=== PATIENT | female | born 1945 | race Caucasian/White ===

== ENCOUNTER 2022-05-09 10:04 | Outpatient (CLI) | payer MEDICARE, SELFPAY ==
[2022-05-09 13:11] LABS: Free T4 Free Thyroxine 0.67 ng/mL (0.78-2.19)
[2022-05-09 13:19] LABS: Thyroid Stimulating Hormone 0.266 uIU/mL (0.465-4.680)
== END 2022-05-09 10:05 | disposition home or self-care (01) ==
LOC: ANHWCLAB 10:08
PROVIDERS: PCP Family Medicine; Visit Provider Internal Medicine Endocrinology, Diabetes & Metabolism
DX: E05.90 Thyrotoxicosis, unspecified without thyrotoxic crisis or storm (principal)
CPT/HCPCS: 36415; 84439; 84443

== ENCOUNTER 2024-10-29 01:01 | Day surgery (SDC) | payer MEDICARE, SELFPAY ==
[2024-08-14 14:39] VITALS: BMI 42.1
--- NOTE | 2024-08-14 15:07 | PC.NURSE ---
Spoke with CARRINGTON regarding medication ELIQUIS. PATIENT verbalizes understanding that the last dose is to be taken on 08/18/2024 and the Endoscopist will instruct them when to restart after the procedure.
[2024-10-21 10:50] VITALS: BMI 42.1
--- NOTE | 2024-10-21 14:23 | SUR.PREOP ---
Spoke with patient in regards to Eliquis. Patient verbalized understanding that her last dose will be 10/26/[address] Katz will let her know when to resume after her procedure is done.
--- OUTSIDE RECORDS SUMMARY | 2024-10-29 01:04 | XMS_ITS | Encounter Summary ---
Author Organization [facility] Address [address] [place] [address] Care Team Providers Care Acute Care Registered Nurse Name Role Phone García Flores MD Primary Care Provider [phone] Barrett High MD Unavailable [phone] Octavia Lau MD Unavailable Pauly Cormier Primary Care Provider [phone] Encounter Details Date Type Department Care Team (Late st Contact Info) Description 12/25/2020 Abstract [facility] [id number] Arin Barajas MA Social History Tobacco Use Types Packs/Day Years Used Date Smoking Tobacco: Never Smokeless Tobacco: Never Alcohol Use Standard Drinks/Week Comments No 0 (1 standard drink = 0.6 oz pur e alcohol) Social Connection and Isolation Panel [NHANES] A nswer Date Recorded Frequency of Communication with Friends and Fami ly Not on file 01/16/2019 Frequency of Social Gatherings with Friends and Family Not on file 01/16/2019 Attends Gnosticist Services Not on file 01/16 Active Member of Clubs or Organizations Not on f ile 01/16/2019 Attends Club or Organization Meetings Not on keke e 01/16/2019 Marital Status 01/16/2019 AUDIT-C Answer Date Recorded Frequency of Alcohol Consumption Never 01/16/2019 Average Number of Drinks Not on file 019 Frequency of Binge Drinking Not on file 12/31 PHQ-2 Answer Date Recorded PHQ-2 Score - If the patient scores above 3, please move on to questions 3-9 0 12/21/2020 [facility] Occupat ional [facility] - Occupational Stress Questionnaire Answer Date Recorded Feeling of Stress Only a little 01/16/2019 Exercise Vital Sign Answer Date Recorde d Days of Exercise per Week 0 days 2018 Minutes of Exercise per Session Not on file 01/16/2019 Comments No Sex and Gender Information Value Date Recorded Sex Assigned at Female 07/16/2024 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 No / Unsure 12/21/2020 1:18 PM CDT documented as of this encounter Functional Status * RETIRED Are you deaf or do you have serious difficulty hearing Answer Date of Assessment Author Status No 03/20/2019 4:17 PM CDT Acti ve * RETIRED Are you blind or do you have serious difficulty seeing, even when wearing glasses? Answer Date of Assessment Author Status No 03/20/2019 4:17 PM CDT Activ e * Do you have serious difficulty walking or climbing stairs? Answer Date of Assessment Author Status No 03/20/2019 4:17 PM CDT Mildred Cespedes RN Active * Do you have difficulty dressing or bathing? Answer Date of Assessment Author Status No 03/20/2019 4:17 PM CDT iMldred Cespedes RN Active * Because of a physical, mental, or emotional condition, do you have difficulty doing errands alone such as visiting a doctor's office or shopping? Answer Date of Assessment Author Status No 03/20/2019 4:17 PM CDT Mildred Cespedes RN Active documented as of this encounter Mental Status * Because of a physical, mental, or emotional condition, do you have serious difficulty concentrating, remembering, or making decisions? Answer Entry Date Author Status No 03/20/2019 4:17 PM CDT Mildred Cespedes RN Active documented in this encounter Plan of Treatment Upcoming Encounters Date Type Department Care Team (Late st Contact Info) Description 11/07/2024 9:30 AM CDT Appointment [facility] [id number] [place], [place] [id number] Pauly Cormier PA [address] [place], [place] [id number] 11/20/2024 10:00 AM CDT Office Visit [facility] [address] [address] Tammie De Guzman, CHRISTINEC Octavia Lau MD [facility] [address] [place] [address] 12/02/2024 7:25 AM CDT Allied Health/[facility] [address] [place] [address] Octavia Lau MD [facility] [address] [place], [place] [id number] 02/05/2025 11:15 AM CDT Office Visit [facility] [address] [place] [phone] Dee Gibson, IS TECHNICIAN-C [facility]. [facility] [address] [place] [address] 07/22/2025 9:20 AM PROJECT [employer] SPECIALIST Office Visit [facility] - [address] [address] Rajesh Izquierdo MD [address] [place] [address] [address] [place], [place] [phone] documented as of this encounter Procedures Procedure Name Priority Date/Time Associated Diagnosis Comments FREE T3 Routine 01/15/2024 THYROXINE, FREE (FT4) Routine 01/15/2024 THYROID STIM HORMONE TSH Routine 01/15/2024 CBC (OUTSIDE LAB) Routine 12/24/2020 COMPREHENSIVE METABOLIC PANEL Routine 12/24/2020 LIPID PANEL Routine 12/24/2020 THYROID STIM HORMONE TSH Routine 12/24/2020 documented in this encounter Results * THYROXINE, FREE (FT4) (01/15/2024) FREE T4 0.8 us Default History Genericprovider LABORATORY Edited Result - Final * THYROID STIM HORMONE TSH (01/15/2024) TSH 1.75 us Default History Genericprovider LABORATORY Edited Result - Final * FREE T3 (01/15/2024) FREE T3 3.5 us Default History Genericprovider LABORATORY Edited Result - Final * CBC (OUTSIDE LAB) (12/24/2020) WBC 5.1 HGB 11.3 HCT 34.7 PLT 160 12/24/2020 us Doc [facility] Abstract LAB-OUTSIDE/ABSTRACTED Final Result * THYROID STIM HORMONE, TSH (12/24/2020) TSH 0.72 12/24/2020 us Doc [facility] Abstract LABORATORY Final Result * COMPREHENSIVE METABOLIC PANEL (12/24/2020) SODIUM S/P/B 142 POTASSIUM S/P/B 4.0 CO2 30 CHLORIDE S/P/B 103 GLUCOSE 95 mg/dL CALCIUM S/P/B 9.9 BUN 22 CREATININE S/P/B 0.78 0.5 - 1.0 EGFR AFR. AMER. 87 <=90 EGFR NON-AFR. AMER. 75 <=90 ALKALINE PHOSPHATASE S/P/B 60 ALT 17 AST 16 BILIRUBIN TOTAL S/P/B 0.4 ALBUMIN S/P/B 4.3 3.5 - 5.0 TOTAL PROTEIN S/P/B 6.5 GLOBULIN 2.2 12/24/2020 us Doc [facility] Abstract LABORATORY Final Result * LIPID PANEL (12/24/2020) CHOLESTEROL 186 HDL 58 TRIGLYCERIDES 136 LDL (CALCULATED) 105 12/24/2020 us Doc [facility] Abstract LABORATORY Final Result documented in this encounter Visit Diagnoses Not on filedocumented in this encounter Additional Health Concerns Assessment Noted Time PHQ-9 Depression Total Score: 0 12/22/19 21 1:34 PM CDT documented as of this encounter Care Teams Acute Care Registered Nurse Relationship Specialty Start Date End Date García Flores MD [address] [place] [id number] PCP - General INTERNAL MEDICINE 01/09/19 02/07/22 Pauly Cormier PA [address] [place] [id number] PCP - General 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 [address] [address] [place] [facility] Clerk CARDIOVASCULAR DISEASE 01/14/19 Octavia Lau MD [facility]. [place] [address] [place] [address] EP Medical Office Clerk CLINICAL CARDIAC ELECTROPHYSIOLOGY 04/03/19 documented as of this encounter
--- OUTSIDE RECORDS SUMMARY | 2024-10-29 01:04 | XMS_ITS | Clinical Summary ---
Author Organization [facility] Address [address] [place] [address] Care Team Providers Care Release Manager Name Role Phone Barrett High MD Unavailable [phone] Octavia Lau MD Unavailable Jania Cormier Primary Care Provider [phone] Allergies No known active allergies Medications omeprazole 20 MG capsule Take 1 capsule (20 mg total) by mouth daily. 0 9 Active sertraline 50 MG tablet Take 1 tablet (50 mg total) by mouth daily. 0 9 Active Cholecalciferol (VITAMIN D3) 2000 units Tab Take 1 tablet (50 mcg total) by mouth daily. 9 Active methIMAzole (TAPAZOLE) 5 MG tablet Take 1 tablet (5 mg total) by mouth daily. 9 Active Multiple Vitamins-Minera ls (LUTEIN-ZEAXANT HIN OR) Active vitamin C 1000 MG tablet daily. 1 Active furosemide (LASIX) 20 MG tablet TAKE 1-2 TABLETS (20-40 MG TOTAL) BY MOUTH DAILY. 180 tablet 3 Active magnesium oxide (MAG-OX) 400 MG tablet Take 1 tablet (400 mg total) by mouth 2 (two) times daily. 60 tablet 3 3 Active spironolactone (ALDACTONE) 25 MG tablet TAKE 1/2 TABLET BY MOUTH EVERY DAY 45 tablet 3 3 Active Zinc 50 MG Tab Take by mouth daily. Active multivitamin with minerals liquid Take 15 mLs by mouth daily. Active vitamin B-12 (CYANOCOBALAMIN ) (CYANOCOBALAMIN ) 1000 mcg tablet Take 1 tablet (1,000 mcg total) by mouth daily. Active simvastatin (ZOCOR) 40 MG tablet take 1 tablet by mouth at bedtime 90 tablet 4 Active sacubitril-vals crystal (ENTRESTO) 24-26 MG tablet Take 1 tablet by mouth daily. 90 tablet 4 4 Active apixaban (ELIQUIS) 5 MG tablet Take 1 tablet (5 mg total) by mouth 2 (two) times daily. 180 tablet 1 5 Active metoprolol succinate ER (TOPROL-XL) 100 MG 24 hr tablet Take 1 tablet (100 mg total) by mouth 2 (two) times daily. 180 tablet 5 Active metoprolol succinate ER (TOPROL-XL) 25 MG 24 hr tablet TAKE 1 TABLET BY MOUTH 2 TIMES DAILY. TAKE WITH THE 100 MG TO EQUAL 125 MG TWICE A DAY. 180 tablet 5 Active metoprolol succinate ER (TOPROL-XL) 100 MG 24 hr tablet TAKE 1 TABLET BY MOUTH TWICE A DAY 180 tablet 5 10/29/19 25 Discontinu ed(Reorder ) metoprolol succinate ER (TOPROL-XL) 25 MG 24 hr tablet TAKE 1 TABLET BY MOUTH 2 TIMES DAILY. TAKE WITH THE 100 MG TO EQUAL 125 MG TWICE A DAY. 180 tablet 5 10/29/19 25 Discontinu ed(Reorder ) apixaban (ELIQUIS) 5 MG tablet Take 1 tablet (5 mg total) by mouth 2 (two) times daily. 180 tablet 4 5 10/16/19 25 Discontinu ed(Reorder ) Active Problems Problem Noted Date Diagnosed Date Left leg pain 03/25/2024 Unsteadiness on feet 03/25/2024 Class 3 severe obesity with body mass index (BMI) of 40.0 to 44.9 in adult, unspecified obesity type, unspecified whether serious comorbidity present 01/17/2023 Closed fracture of distal en d of right ulna with routine healing, unspecified fracture morphology, subsequent encounter 01/02/2023 Assessment & Plan (02/14/2023 1:07 PM CDT): Healing right distal ulnar fracture Recommendation at this time, continue with progressive range of motion strengthening. We will see her back as needed. Assessment & Plan (01/16/2023 9:06 PM CDT): Recommendation at this time, two more weeks in the brace then two weeks out of the brace. We'll see her in four weeks for repeat evaluation and x-ray. Assessment & Plan (01/02/2023 8:09 PM CDT): Recommendation at this time, we went over the risks and benefits, as well as alternatives. We'll get her into a cock-up wrist splint. We'll have her follow- up in a couple weeks for repeat evaluation and x-ray. As long as it doesn't shift, we should not need to proceed with any type of surgical intervention. 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 Overview (03/20/2019): Overview: THYROTOX NOS NO CRISIS Toxic diffuse goiter 01/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 Overview (03/20/2019): Overview: TOX DIF GOITER NO CRISIS Hyperlipidemia Encounters Date Type Department Care Team Description 10/28/2024 Telephone [facility] [place] [address] [place] [address] Octavia Lau MD Refill Request (METOPROLOL) 10/20/2024 Results Follow-Up [facility] [address] [place] [phone] Barrett High MD USE ECHOCARDIOGRAM W CON 10/16/2024 9:56 AM CDT - 10/16/2024 11:59 PM CDT Hospital Encounter [facility] [id number] [place] [id number] Barrett High MD Discharge Disposition: Home or Self Care (Routine Discharge) 10/16/2024 Travel 10/15/2024 Telephone [facility] [address] [address] Marisela Bradshaw MOSAIC WORKER Refill Request (Eliquis/) 08/15/2024 Scan [facility] [address] [address] Angela Swenson, RN Information (CRMD form for [employer]urant) 08/14/2024 9:00 AM GARAGE CONSTRUCTION EQUIPMENT MECHANIC Allied Health/Nurse Visit [facility] [address] [address] Octavia Lau MD Remote Device Check 08/14/2024 Telephone [facility] [address] [address] Angela Swenson RN Remote Device Check 08/09/2024 Telephone [facility] [address] [address] Barrett High MD Surgical Clearance from Last 3 Months Immunizations Immunization Administration Dates Next Due Afluria 36 MONTHS+ (Prefille d Syringe IIV4) 03/20/2019(Deferred: Patient/family declined) Fluzone High Dose - >Age 65 (Prefilled Syringe) 04/22/2019,04/11/2018 Influenza Adult (Generic) 04/10/2019,06/21/2012 MODERNA COVID-19 (12+) MRNA, LNP-S, PF, 100 MCG/ 0.5 ML DOSE 08/27/2020,07/30/2020 Shingrix 06/24/2020,04/23/2020 Tdap (Boostrix) 12/16/2022 Family History Medical History Relation Comments CHF Mother Breast Cancer Neg Hx Relation Status Comments Father (Age 89) Maternal Grandfather Maternal Grandmother Mother (Age 100) Paternal Grandfather Paternal Grandmother Sister (Age 79) Social History Tobacco Use Types Packs/Day Years Used Date Smoking Tobacco: Never Smokeless Tobacco: Never Tobacco Cessation:Counseling Given: Yes Comments:na Alcohol Use Standard Drinks/Week Comments No 0 (1 standard drink = 0.6 oz pur e alcohol) Social Connection and Isolation Panel [NHANES] A nswer Date Recorded Frequency of Communication with Friends and Fami ly Not on file 01/16/2019 Frequency of Social Gatherings with Friends and Family Not on file 01/16/2019 Attends Scientologist Services Not on file 01/16 Active Member of Clubs or Organizations Not on f ile 01/16/2019 Attends Club or Organization Meetings Not on keke e 01/16/2019 Marital Status 01/16/2019 AUDIT-C Answer Date Recorded Frequency of Alcohol Consumption Never 01/16/2019 Average Number of Drinks Not on file 019 Frequency of Binge Drinking Not on file 12/31 PHQ-2 Answer Date Recorded Patient Health Questionnaire-2 Score 0 07/16/2024 [facility] - Occupational Stress Questionnaire Answer Date Recorded Feeling of Stress Only a little 01/16/2019 Exercise Vital Sign Answer Date Recorde d Days of Exercise per Week 0 days 2018 Minutes of Exercise per Session Not on file 01/16/2019 Comments No Sex and Gender Information Value Date Recorded Sex Assigned at Female 07/16/2024 3:31 PM GARAGE CONSTRUCTION EQUIPMENT MECHANIC Legal Sex Female 8:35 PM CDT Gender Identity Not on file Sexual Orientation Not on file Occupation Industry Job Start Date Job End Date Not on file Not on file Not on file Not on file Last Filed Vital Signs Vital Sign Reading Time Taken Comments Blood Pressure 134/80 07/17/2024 10:17 AM GARAGE CONSTRUCTION EQUIPMENT MECHANIC Pulse 73 07/17/2024 10:17 AM GARAGE CONSTRUCTION EQUIPMENT MECHANIC Temperature 36.2 C (97.1 F) 07/16/2024 3:37 PM GARAGE CONSTRUCTION EQUIPMENT MECHANIC Respiratory Rate 14 07/16/2024 3:37 PM GARAGE CONSTRUCTION EQUIPMENT MECHANIC Oxygen Saturation 97% 07/16/2024 3:37 PM GARAGE CONSTRUCTION EQUIPMENT MECHANIC ra Inhaled Oxygen Concentration - - Weight 106.1 kg (234 lb) 07/17/2024 10:17 AM GARAGE CONSTRUCTION EQUIPMENT MECHANIC Height 157.5 cm (5' 2 ) 07/17/2024 10:17 AM GARAGE CONSTRUCTION EQUIPMENT MECHANIC Body Mass Index 42.8 07/17/2024 10:17 AM GARAGE CONSTRUCTION EQUIPMENT MECHANIC Plan of Treatment Upcoming Encounters Date Type Department Care Team (Late st Contact Info) Description 11/07/2024 9:30 AM CDT Appointment [facility] [address] [place], [place] [phone] Jania Cormier PA [address] [place], [place] [phone] 11/20/2024 10:00 AM CDT Office Visit [facility] [address] [phone] Tammie De Guzman PA-C Octavia Lau MD [facility] [address] [place] [address] 12/02/2024 7:25 AM CDT [facility] [address] [place] [address] Octavia Lau MD [facility]. [facility] [address] [place] [address] 02/05/2025 11:15 AM CDT Office Visit [facility] [address] [place] [phone] Dee Gibson, KNOWLEDGE ARCHITECT-C [facility] [address] [place] [address] 07/22/2025 9:20 AM GARAGE CONSTRUCTION EQUIPMENT MECHANIC Office Visit [facility] [address] [phone] Rajesh Izquierdo MD [address] [facility] [address] [place] [address] Health Maintenance Due Date Last Done Comments Hepatitis C 1965 Pneumococcal Vaccine: 50+ Years (1 of 1 - PCV) 1997 Annual Medicare Wellness Visit 2012 RSV Immunization or 60+ Years (1 - 1-dose 75+ series) 2022 COVID-19 Vaccine (3 - 2023-2 5 season) 2024 08/27/2020, 07/30/2020 DTaP, Tdap and Td Vaccines ( 2 - Td or Tdap) 12/16/2032 12/16/2022 Zoster Vaccines Completed 06/24/2020, 04/23/2020 Dexa Scan (General) Completed 05/14/2024, 05/19/2020 PHQ-2 (Physician [place]) Completed 07/16/2024 Meningococcal B Vaccine Aged Out No l onger eligible based on patient's age to complete this topic Meningococcal Vaccine Aged Out No twin camille eligible based on patient's age to complete this topic RSV Immunizations Under 20 Months Aged Out No longer eligible b ased on patient's age to complete this topic Medical Devices Implanted Type Area Oil Burner Servicer And Installer Device Identifier Shelf Expiration Date Model / Serial / Lot Sj Biv Icd-03/21/2019 Implanted:Qty : 1 on 03/21/2019 by Octavia Lau MD ICD [facility] 03/02/2021 [id number] / [id number] / Rv Lead- 9 Implanted:Qty : 1 on 03/21/2019 by Octavia Lau MD Lead Implant Left: Chest Wall [facility] [id number] / [id number] / Ra Lead- 9 Implanted:Qty : 1 on 03/21/2019 by Octavia Lau MD Lead Implant Left: Chest Wall [facility] [id number] / [id number] / Lv Lead- 9 Implanted:Qty : 1 on 03/21/2019 by Octavia Lau MD Lead Implant [facility] 01/30/2022 [id number] / [id number] / Procedures Procedure Name Priority Date/Time Associated Diagnosis Comments USE ECHOCARDIOGRAM W CON Routine 10/16/2024 10:54 AM CDT Nonischemic cardiomyopathy (CMS/HCC HHS/HCC) BONE DENSITY/DEXA Routine 05/14/2024 11: 31 AM GARAGE CONSTRUCTION EQUIPMENT MECHANIC Other primary ovarian failure from Last 3 Months or Most Recently Relevant to Health Maintenance Results * USE ECHOCARDIOGRAM W CON (10/16/2024 10:54 AM CDT) Anatomical Region Laterality Modality NA Ultrasound 10/16/2024 10:0 4 AM CDT Narrative 10/19/2024 10:57 AM CDT CARROLL MARIE Pat.Name: Jimena Barron ward Pat.ID: [id number] .Date: 10/16/2024 Refer.MD: Cynthia, [facility] Radiology Exam Time: 10:04:00 AM Study Type:CYNTHIA Height: 62 in Weight: 230 lb BSA: 2.03 m2 Age: 12 1945,79Y Sex: F Sonogrphr: David Pat. Stat.:Outpatient Reason for Study:H/O Cardiomyopathy Procedures: Study performed at [place], [place] and interpreted by [facility]. 2D, M-mode, Doppler, Color Flow, Myocardial contrast was used to enhance endocardial definition. ++++++++++++++++++++++++++++++++++++ SUMMARY: ++++++++++++++++++++++++++++++++++++ . The left ventricular size is normal. The left ventricular systolic function is normal. Estimated left ventricular ejection fraction is 60-65%. Left ventricular diastolic function is abnormal (grade 1 - impaired relaxation). Wall motion appears normal in all segments. The right ventricular size is mildly enlarged. Right ventricular systolic function is normal. Right ventricular systolic pressure is 30 mmHg. The right ventricle not adequately visualized in all views. A pacemaker wire is visualized in the right atrium. No evidence of pericardial effusion. Inferior vena cava shows >50% collapse with respiration consistent with normal right atrial pressure. There is no evidence of aortic regurgitation. There is trace mitral regurgitation. Mild tricuspid regurgitation. Right ventricular systolic pressure is 30 mmHg. ++++++++++++++++++++++++++++++++++++ FINDINGS: ++++++++++++++++++++++++++++++++++++ LV: The left ventricular size is normal. The left ventricular systolic function is normal. Estimated left ventricular ejection fraction is 60-65%. Left ventricular diastolic function is abnormal (grade 1 - impaired relaxation). WM: Wall motion appears normal in all segments. RV: The right ventricular size is mildly enlarged. Right ventricular systolic function is normal. Right ventricular systolic pressure is 30 mmHg. The right ventricle not adequately visualized in all views. LA: Left atrial size is normal. RA: Right atrial size is normal. A pacemaker wire is visualized in the right atrium. MARK: No evidence of pericardial effusion. AO: Aorta is normal. SVn: Inferior vena cava is normal. Inferior vena cava shows >50% collapse with respiration consistent with normal right atrial pressure. AV: The aortic valve is trileaflet. There is no aortic stenosis. There is no evidence of aortic regurgitation. MV: The mitral valve is structurally normal. There is trace mitral regurgitation. PV: Trace pulmonic regurgitation. TV: Structurally normal tricuspid valve. Mild tricuspid regurgitation. <Electronic Signature> 10/19/2024 10:57 AM Barrett High M.D. Procedure Note Barrett High MD - 10/19/2024 CARROLL Patel.Name: Jimena Barron.ID: [id number] .Date: 10/16/2024 Refer.MD: Cynthia, [facility] Radiology Exam Time: 10:04:00 AM Study Type:CYNTHIA Height: 62 in Weight: 230 lb BSA: 2.03 m2 Age: 12 1945,79Y Sex: F Sonogrphr: Ls Pat. Stat.:Outpatient Reason for Study:H/O Cardiomyopathy Procedures: Study performed at [place], [place] and interpreted by [facility]. 2D, M-mode, Doppler, Color Flow, Myocardial contrast was used to enhance endocardial definition. ++++++++++++++++++++++++++++++++++++ SUMMARY: ++++++++++++++++++++++++++++++++++++ . The left ventricular size is normal. The left ventricular systolic function is normal. Estimated left ventricular ejection fraction is 60-65%. Left ventricular diastolic function is abnormal (grade 1 - impaired relaxation). Wall motion appears normal in all segments. The right ventricular size is mildly enlarged. Right ventricular systolic function is normal. Right ventricular systolic pressure is 30 mmHg. The right ventricle not adequately visualized in all views. A pacemaker wire is visualized in the right atrium. No evidence of pericardial effusion. Inferior vena cava shows >50% collapse with respiration consistent with normal right atrial pressure. There is no evidence of aortic regurgitation. There is trace mitral regurgitation. Mild tricuspid regurgitation. Right ventricular systolic pressure is 30 mmHg. ++++++++++++++++++++++++++++++++++++ FINDINGS: ++++++++++++++++++++++++++++++++++++ LV: The left ventricular size is normal. The left ventricular systolic function is normal. Estimated left ventricular ejection fraction is 60-65%. Left ventricular diastolic function is abnormal (grade 1 - impaired relaxation). WM: Wall motion appears normal in all segments. RV: The right ventricular size is mildly enlarged. Right ventricular systolic function is normal. Right ventricular systolic pressure is 30 mmHg. The right ventricle not adequately visualized in all views. LA: Left atrial size is normal. RA: Right atrial size is normal. A pacemaker wire is visualized in the right atrium. MARK: No evidence of pericardial effusion. AO: Aorta is normal. SVn: Inferior vena cava is normal. Inferior vena cava shows >50% collapse with respiration consistent with normal right atrial pressure. AV: The aortic valve is trileaflet. There is no aortic stenosis. There is no evidence of aortic regurgitation. MV: The mitral valve is structurally normal. There is trace mitral regurgitation. PV: Trace pulmonic regurgitation. TV: Structurally normal tricuspid valve. Mild tricuspid regurgitation. <Electronic Signature> 10/19/2024 10:57 AM Barrett High M.D. Barrett High MD ECHO Final Result * BONE DENSITY/DEXA (05/14/2024 11:31 AM GARAGE CONSTRUCTION EQUIPMENT MECHANIC) Anatomical Region Laterality Modality Bone Bone Density 05/14/2024 1:09 PM GARAGE CONSTRUCTION EQUIPMENT MECHANIC Impressions 05/14/2024 1:10 PM GARAGE CONSTRUCTION EQUIPMENT MECHANIC IMPRESSION: WHO Classification: normal RECOMMENDATIONS: All patients should ensure an adequate intake of dietary calcium and vitamin D. The NOF recommend adults under the age of 50 need 1000 mg of calcium and 400-800 IU of vitamin D daily. Effective therapy for the prevention and treatment of osteoporosis include bisphosphonates. FOLLOW-UP: People with diagnosed cases of osteoporosis or at high risk for fracture should have regular bone mineral density test. For patients eligible for Medicare, routine testing is allowed once every 2 years. Testing frequency can be increased to one year for patients who have rapidly progressing disease, those who are receiving or discontinuing medical therapy to restore bone mass, or have additional risk factors. Ordered By: JANIA CORMIER Interpreted By: Carlos Youngblood MD, 05/14/2024 1:09 PM Narrative 05/14/2024 1:10 PM GARAGE CONSTRUCTION EQUIPMENT MECHANIC [facility] [address] [place] [address] EXAMINATION: BONE DENSITY/DEXA INDICATIONS: Other primary ovarian failure COMPARISON: None TECHNIQUE: DEXA bone mineral density evaluation was performed in the AP projection over the lumbar spine and both hips utilizing standard imaging techniques. FINDINGS: The BMD measured at the AP spine L1-L4 is 1.119 g/cm? with a T-score of 0.7. The BMD measured at the left femoral neck is 0.802 g/cm? with a T-score of -0.4. The BMD measured at the left hip is 0.877 g/cm? with a T-score of -0.5. The BMD measured at the right femoral neck is 0.786 g/cm? with a T-score of - 0.6. The BMD measured at the right hip is 0.950 g/cm? with a T-score of 0.1. FRAX 10-year fracture risk: Not reported because all T-scores are at or above -1.0 Procedure Note Carlos Youngblood MD - 05/14/2024 [facility] [address] [address] [place] [id number] EXAMINATION: BONE DENSITY/DEXA INDICATIONS: Other primary ovarian failure COMPARISON: None TECHNIQUE: DEXA bone mineral density evaluation was performed in the APprojection over the lumbar spine and both hips utilizing standard imagingtechniques. FINDINGS: The BMD measured at the AP spine L1-L4 is 1.119 g/cm? with a T-score of0.7. The BMD measured at the left femoral neck is 0.802 g/cm? with a T-score of-0.4. The BMD measured at the left hip is 0.877 g/cm? with a T-score of -0.5. The BMD measured at the right femoral neck is 0.786 g/cm? with a T-scoreof -0.6. The BMD measured at the right hip is 0.950 g/cm? with a T-score of 0.1. FRAX 10-year fracture risk: Not reported because all T-scores are at or above -1.0 IMPRESSION: WHO Classification: normal RECOMMENDATIONS: All patients should ensure an adequate intake of dietary calcium andvitamin D. The NOF recommend adults under the age of 50 need 1000 mg ofcalcium and 400-800 IU of vitamin D daily. Effective therapy for theprevention and treatment of osteoporosis include bisphosphonates. FOLLOW-UP: People with diagnosed cases of osteoporosis or at high risk for fractureshould have regular bone mineral density test. For patients eligible forMedicare, routine testing is allowed once every 2 years. Testing frequencycan be increased to one year for patients who have rapidly progressingdisease, those who are receiving or discontinuing medical therapy torestore bone mass, or have additional risk factors. Ordered By: JANIA CORMIER Interpreted By: Carlos Youngblood MD, 05/14/2024 1:09 PM Jania HALL DEXA Final Result from Last 3 Months or Most Recently Relevant to Health Maintenance Insurance Advance Directives Documents on File Type Date Recorded Patient Duct Layer Supervisor Expl anation Advance Directives and Living Will 03/22/2019 7:21 AM 04/02/2007 SHORT FORM POA FOR HEALTH CARE Advance Directives and Living Will 03/22/2019 7:21 AM 07/11/18 NOTICE OF INDIVIDUAL SIGNING POA FOR HEALTHCARE Advance Directives and Living Will 10/17/2018 12:00 AM POWER OF BALANCE ASSEMBLER FO R HEALTH CARE Advance Directives and Living Will 05/31/2018 12:00 AM POWER OF BALANCE ASSEMBLER FO R HEALTH CARE Advance Directives and Living Will 05/31/2018 12:00 AM POWER OF BALANCE ASSEMBLER FO R HEALTH CARE Advance Directives and Living Will 04/24/2018 12:00 AM POWER OF BALANCE ASSEMBLER FO R HEALTH CARE Advance Directives and Living Will 04/24/2018 12:00 AM POWER OF BALANCE ASSEMBLER FO R HEALTH CARE Advance Directives and Living Will 03/27/2018 12:00 AM POWER OF BALANCE ASSEMBLER FO R HEALTH CARE Advance Directives and Living Will 03/27/2018 12:00 AM POWER OF BALANCE ASSEMBLER FO R HEALTH CARE Advance Directives and Living Will 02/13/2018 12:00 AM POWER OF BALANCE ASSEMBLER FO R HEALTH CARE Advance Directives and Living Will 02/13/2018 12:00 AM POWER OF BALANCE ASSEMBLER FO R HEALTH CARE Advance Directives and Living Will 01/22/2018 12:00 AM POWER OF BALANCE ASSEMBLER FO R HEALTH CARE Advance Directives and Living Will 01/22/2018 12:00 AM POWER OF BALANCE ASSEMBLER FO R HEALTH CARE Advance Directives and Living Will 08/30/2017 12:00 AM POWER OF BALANCE ASSEMBLER FO R HEALTH CARE Advance Directives and Living Will 08/30/2017 12:00 AM POWER OF BALANCE ASSEMBLER FO R HEALTH CARE Advance Directives and Living Will 04/26/2017 12:00 AM POWER OF BALANCE ASSEMBLER FO R HEALTH CARE Advance Directives and Living Will 04/26/2017 12:00 AM POWER OF BALANCE ASSEMBLER FO R HEALTH CARE Advance Directives and Living Will 12/27/2016 12:00 AM POWER OF BALANCE ASSEMBLER FO R HEALTH CARE Advance Directives and Living Will 12/27/2016 12:00 AM POWER OF BALANCE ASSEMBLER FO R HEALTH CARE Advance Directives and Living Will 10/12/2016 12:00 AM POWER OF BALANCE ASSEMBLER FO R HEALTH CARE Advance Directives and Living Will 10/12/2016 12:00 AM POWER OF BALANCE ASSEMBLER FO R HEALTH CARE Advance Directives and Living Will 08/25/2016 12:00 AM POWER OF BALANCE ASSEMBLER FO R HEALTH CARE Advance Directives and Living Will 08/25/2016 12:00 AM POWER OF BALANCE ASSEMBLER FO R HEALTH CARE Advance Directives and Living Will 05/17/2016 12:00 AM POWER OF BALANCE ASSEMBLER FO R HEALTH CARE Advance Directives and Living Will 05/17/2016 12:00 AM POWER OF BALANCE ASSEMBLER FO R HEALTH CARE Advance Directives and Living Will 03/18/2016 12:00 AM POWER OF BALANCE ASSEMBLER FO R HEALTH CARE Advance Directives and Living Will 03/18/2016 12:00 AM POWER OF BALANCE ASSEMBLER FO R HEALTH CARE Advance Directives and Living Will 12/30/2015 12:00 AM POWER OF BALANCE ASSEMBLER FO R HEALTH CARE Advance Directives and Living Will 12/30/2015 12:00 AM POWER OF BALANCE ASSEMBLER FO R HEALTH CARE Advance Directives and Living Will 09/09/2015 12:00 AM POWER OF BALANCE ASSEMBLER FO R HEALTH CARE Advance Directives and Living Will 09/09/2015 12:00 AM POWER OF BALANCE ASSEMBLER FO R HEALTH CARE * Full Code (Latest Code Status on File) Date Activated Date Inactivated Comments 03/21/2019 5:42 PM 03/22/2019 8:56 PM * Full Code Date Activated Date Inactivated Comments 03/20/2019 4:15 PM 03/21/2019 5:42 PM * Full Code Date Activated Date Inactivated Comments 01/21/2019 2:00 PM 01/21/2019 6:53 PM Care Teams Release Manager Relationship Specialty Start Date End Date Jania Cormier PA [address] [place] [address] PCP - General PHYSICIAN SENIOR INVESTMENT ANALYST 02/08/22 Barrett High MD [facility] [address] [place] [address] [place] [facility] Laboratory Scientist CARDIOVASCULAR DISEASE 01/14/19 Octavia Lau MD [facility] [address] [place] [address] EP Chemical Laboratory Scientist CLINICAL CARDIAC ELECTROPHYSIOLOGY 04/03/19
--- OUTSIDE RECORDS SUMMARY | 2024-10-29 01:04 | XMS_ITS | Encounter Summary ---
Author Organization [facility] Address [address] [place] [address] Care Team Providers Care Want Ad Clerk Name Role Phone García Flores MD Primary Care Provider [phone] Barrett High MD Unavailable [phone] Octavia Lau MD Unavailable Pauly Cormier Primary Care Provider [phone] Encounter Details Date Type Department Care Team (Late st Contact Info) Description 03/25/2019 Hospital Follow-up Call [facility] Telemetry Unit [address] [place], [place] [id number] Thu Flores, Numerologist Social History Tobacco Use Types Packs/Day Years [...] and Family Not on file 01/16/2019 Attends Mandaeism Services Not on file 01/16 Active Member of Clubs or Organizations Not on f ile 01/16/2019 Attends Club or Organization Meetings Not on keke e 01/16/2019 Marital Status 01/16/2019 AUDIT-C Answer Date Recorded Frequency of Alcohol Consumption Never 01/16/2019 Average Number of Drinks Not on file 019 Frequency of Binge Drinking Not on file 12/31 [facility] of Occupat ional Health - Occupational Stress Questionnaire Answer Date Recorded Feeling of Stress Only a little 01/16/2019 Exercise Vital Sign Answer Date Recorde d Days of Exercise per Week 0 days 2018 Minutes of Exercise per Session Not on file 01/16/2019 Comments Unknown Sex and Gender Information Value Date Recorded Sex Assigned at Female 07/16/2024 3:31 PM MILLING MACHINE OPERATOR Legal Sex Female 8:35 PM CDT Gender Identity Not on file Sexual Orientation Not on file Occupation Industry Job Start Date Job End Date Not on file Not on file Not on file Not on file documented as of this encounter Functional Status * RETIRED Are you deaf or do you have serious difficulty hearing Answer Date of Assessment Author Status No 03/20/2019 4:17 PM CDT Activ e * RETIRED Are you blind or do [...] PM CDT Mildred Cespedes RN Active * Because of a physical, mental, or emotional condition, do you have difficulty doing errands alone such as visiting a doctor's office or shopping? Answer Date of Assessment Author Status No 03/20/2019 4:17 PM CARLOST Mildred Cespedes RN Active documented as of this encounter Mental Status * Because of a physical, mental, or emotional condition, do you have serious difficulty concentrating, remembering, or making decisions? Answer Entry Date Author Status No 03/20/2019 4:17 PM CARLOST Mildred Cespedes RN Active documented in this encounter Plan of Treatment Upcoming Encounters Date Type Department Care Team (Late st Contact Info) Description 11/07/2024 9:30 AM CDT Appointment [facility] [address] [place] [address] Pauly Cormier, ISABEL [address] [place] [address] 11/20/2024 10:00 AM CDT Office Visit [facility] [address] [phone] Tammie De Guzman PA-C Saha, Paban, MD [place]. [facility] [address] [place] [address] 12/02/2024 7:25 AM CDT Allied Health/Nurse Visit [facility], [facility] [address] [place] [address] Octavia Lau MD [place]. [facility] [address] [place] [address] 02/05/2025 11:15 AM CDT Office Visit [facility] [address] [place] [address] Dee Gibson, SWITCH FOREMAN-C [place]. [facility] [address] [place] [address] 07/22/2025 9:20 AM MILLING MACHINE OPERATOR Office Visit [facility] Pulmonology Specialty [address] [phone] Rajesh Izquierdo MD [address] [place] [address] [address] [place], [place] [address]399 documented as of this encounter Visit Diagnoses Not on filedocumented in this encounter Additional Health Concerns Infection Onset Date Last Indicated Resolved Time COVID-19 Rule Out 09/06/2020 09/06/2020 09/07/2020 5:31 PM MILLING MACHINE OPERATOR documented as of this encounter Care Teams Want Ad Clerk Relationship Specialty Start Date End Date Flores, García L, MD [address] [place] [address] PCP - General INTERNAL MEDICINE 01/09/19 02/07/22 Pauly Cormier PA [address] [place] [address] PCP - General PHYSICIAN MAGISTRATE 02/08/22 Barrett High [facility] [address] [place] [address] [place] Water Well Driller CARDIOVASCULAR DISEASE 01/14/19 Octavia Lau MD [facility] [address] [place], [place] [address] EP Water Well Driller CLINICAL CARDIAC ELECTROPHYSIOLOGY 04/03/19 documented as of this encounter
--- OUTSIDE RECORDS SUMMARY | 2024-10-29 01:04 | XMS_ITS | Encounter Summary ---
Author Organization [facility] Address [address] [place] [address] Care Team Providers Care Food Critic Name Role Phone Barrett High MD Unavailable [phone] Octavia Lau MD Unavailable Pauly Cormier Primary Care Provider [phone] Encounter Details Date Type Department Care Team (Late st Contact Info) Description 02/01/2023 SimpleOrder Message Enc [facility] [address] [place], [facility] Provider Kolton sweeney Social History Tobacco Use Types Packs/Day Years Used Date Smoking Tobacco: Never Smokeless Tobacco: Never Comments:na Alcohol Use Standard Drinks/Week Comments No 0 (1 standard drink = 0.6 oz pur e alcohol) Social Connection and Isolation Panel [NHANES] A nswer Date Recorded Frequency of Communication with Friends and Fami ly Not on file 01/16/2019 Frequency of Social Gatherings with Friends and Family Not on file 01/16/2019 Attends Evangelical Services Not on file 01/16 Active Member [...] Date Recorded Patient Health Questionnaire-2 Score 0 01/16/2023 [facility] [place] of Occupat ional Health - Occupational Stress Questionnaire Answer Date Recorded Feeling of Stress Only a little 01/16/2019 Exercise Vital Sign Answer Date Recorde d Days of Exercise per Week 0 days 2018 Minutes of Exercise per Session Not on file 01/16/2019 Comments No Sex and Gender Information Value Date Recorded Sex Assigned at Female 07/16/2024 3:31 PM PROJECT SURVEYOR Legal Sex Female 8:35 PM CDT Gender [...] Date Author Status No 03/20/2019 4:17 PM Mildred Alvares RN Active documented in this encounter Plan of Treatment Upcoming Encounters Date Type Department Care Team (Late st Contact Info) Description 11/07/2024 9:30 AM CDT Appointment [facility] [address] [place] [address] Pauly Cormier, ISABEL [facility] [place] [address] 11/20/2024 10:00 AM CDT Office Visit [facility] [address] [phone] Tammie De Guzman PA-C Saha, Paban, MD [facility]. [facility] [address] [place], [place] [address] 12/02/2024 7:25 AM CDT Allied Health/Nurse [facility], [facility] [address] [place] [address] Octavia Lau MD [facility]. [facility] [address] [place], [place] [address] 02/05/2025 11:15 AM CDT Office Visit [facility] [address] [place] [address] Dee Gibson, LACE ROLLER-C [facility]. [facility] [address] [place] [address] 07/22/2025 9:20 AM PROJECT SURVEYOR Office Visit [facility] Pulmonology Specialty Clinic - [address] [phone] Rajesh Izquierdo MD [address] [place] [address] [address] [place], [place] [address] documented as of this encounter Visit Diagnoses Not on filedocumented in this encounter Additional Health Concerns Assessment Noted Time PHQ-9 Depression Total Score: 0 12/22/19 21 1:34 PM CDT documented as of this encounter Care Teams Food Critic Relationship Specialty Start Date End Date Pauly Cormier PA [address] [place] [address] PCP - General PHYSICIAN MANDREL PULLER 02/08/22 Barrett High MD Three [facility]. [address] [place] [address] [place] Colon Therapist CARDIOVASCULAR DISEASE 01/14/19 Octavia Lau MD Three [facility]. [address] [place], [place] [address] EP Colon Therapist CLINICAL CARDIAC ELECTROPHYSIOLOGY 04/03/19 documented as of this encounter
--- OUTSIDE RECORDS SUMMARY | 2024-10-29 01:04 | XMS_ITS | CONTINUITY OF CARE DOCUMENT ---
Author Name moises de leon Address Unknown Organization [facility] Address [address] [place] [address] Phone [phone] Care Team Providers Care Child Day Care Teacher Name Role Phone moises de leon Unavailable Unavailable INSURANCE PROVIDERS Payer name Policy type / Coverage type [place] red constitution party ID [facility] [id number]
--- OUTSIDE RECORDS SUMMARY | 2024-10-29 01:04 | XMS_ITS | Encounter Summary ---
Author Organization [facility] Address [address] [place] [address] Care Team Providers Care Long Haul Truck Driver Name Role Phone García Flores MD Primary Care Provider [phone] Barrett High MD Unavailable [phone] Octavia Lau MD Unavailable Pauly Cormier Primary Care Provider [phone] Encounter Details Date Type Department Care Team (Late st Contact Info) Description 09/01/2017 [facility] at [address] [address] Arin Barajas MA Social History Tobacco Use Types Packs/Day Years Used Date Smoking Tobacco: Never Assessed Comments Unknown Sex and Gender Information Value Date Recorded Sex Assigned at Female 07/16/2024 3:31 PM TELEMARKETING MANAGER Legal Sex Female 8:35 PM CDT Gender Identity Not on file Sexual Orientation Not on file documented as of this encounter Plan of Treatment Upcoming Encounters Date Type Department Care Team (Late st Contact Info) Description 11/07/2024 9:30 AM CDT Appointment [facility] [address] [place] [address] Pauly Cormier PA [address] [place] [address] 11/20/2024 10:00 AM CDT Office Visit [facility] [address] [phone] Tammie De Guzman, PACeciliaC Octavia Lau MD [facility]. [facility] [address] [place], [place] [address] 12/02/2024 7:25 AM CDT Allied Health/Nurse Visit [facility] THREE [facility], [address] [place], [place] [address] Octavia Lau MD [facility]. [facility] [address] [place], [place] [address] 02/05/2025 11:15 AM CDT Office Visit [facility] [address] [place] [phone] Dee Gibson, FERMENTING CELLARS RECEIVER-C [facility]. [facility] [address] [place], [place] [address] 07/22/2025 9:20 AM TELEMARKETING MANAGER Office Visit [facility] Pulmonology Specialty Clinic - [address] [address] Rajesh Izquierdo MD [address] [place] [address] [address] [place] [address] documented as of this encounter Procedures Procedure Name Priority Date/Time Associated Diagnosis Comments COMPREHENSIVE METABOLIC PANEL Routine 08/08/2023 LIPID PANEL Routine 08/08/2023 CBC, MANUAL DIFF Routine 08/08/2023 VITAMIN D, 25 OH Routine 08/08/2023 MAGNESIUM Routine 12/09/2022 BNP Routine 01/07/2019 BASIC METABOLIC PANEL Routine 01/07/2019 VITAMIN D, 25 OH Routine 08/30/2017 documented in this encounter Results * VITAMIN D, 25 OH (08/08/2023) Pathologist [facility] VITAMIN D 25 HYDROXY S/P/B 48 08/08/2023 us Default History Genericprovider LABORATORY Final Result * COMPREHENSIVE METABOLIC PANEL (08/08/2023) Pathologist [facility] SODIUM S/P/B 140 GLUCOSE 89 mg/dL AST 21 BUN 22 CREATININE S/P/B 0.81 0.5 - 1.0 CALCIUM S/P/B 10.0 POTASSIUM S/P/B 4.5 CHLORIDE S/P/B 104 ALT 17 GFR ESTIMATE 75 us Default History Genericprovider LABORATORY Edited Result - Final * LIPID PANEL (08/08/2023) [facility] CHOLESTEROL 203 TRIGLYCERIDES 150 HDL 63 LDL (CALCULATED) 114 NON HDL CHOLESTEROL 140 us Default History Genericprovider LABORATORY Edited Result - Final * CBC, MANUAL DIFF (08/08/2023) Pathologist [facility] WBC 5.4 HGB 12.6 HCT 38.5 PLT 139 us Default History Genericprovider LABORATORY Edited Result - Final * MAGNESIUM (12/09/2022) Pathologist [facility] MAGNESIUM 1.9 12/09/2022 us Default History Genericprovider LABORATORY Final Result * BNP (01/07/2019) Pathologist [facility] B TYPE NATRIURETIC PEPTIDE 561 01/07/2019 us Doc [facility] LABORATORY Final Result * (ABNORMAL) BASIC METABOLIC PANEL (01/07/2019) SODIUM S/P/B 143 POTASSIUM S/P/B 3.7 CO2 26 CHLORIDE S/P/B 109 GLUCOSE 109 mg/dL CALCIUM S/P/B 9.7 BUN 28 CREATININE S/P/B 0.75 0.5 - 1.0 EGFR AFR. AMER. 93(A) <=90 EGFR NON-AFR. AMER. 80 <=90 01/07/2019 us Doc [facility]ORAT[facility] Final Result * VITAMIN D, 25 OH (08/30/2017) VITAMIN D 25 HYDROXY S/P/B 40 08/30/2017 us Doc [facility]ORAT[facility] Final Result documented in this encounter Visit Diagnoses Not on filedocumented in this encounter Additional Health Concerns Infection Onset Date Last Indicated Resolved Time COVID-19 Rule Out 09/06/2020 09/06/2020 09/07/2020 5:31 PM TELEMARKETING MANAGER documented as of this encounter Care Teams Long Haul Truck Driver Relationship Specialty Start Date End Date García Flores MD [address] [place] [address] PCP - General INTERNAL MEDICINE 01/09/19 02/07/22 Pauly Cormier PA [address] [place] [address] PCP - General PHYSICIAN ELEMENTARY PRINCIPAL 02/08/22 Barrett High MD [facility]. [address] [address] [place] Hot Head Machine Operator CARDIOVASCULAR DISEASE 01/14/19 Octavia Lau MD Three [facility]. [place] [address] [place] [address] EP Hot Head Machine Operator CLINICAL CARDIAC ELECTROPHYSIOLOGY 04/03/19 documented as of this encounter
--- OUTSIDE RECORDS SUMMARY | 2024-10-29 01:04 | XMS_ITS | Encounter Summary ---
Author Organization [facility] Address [address] [place] [address] Care Team Providers Care Optimization Analyst Name Role Phone Barrett High MD Unavailable [phone] Octavia Lau MD Unavailable Pauly Cormier Primary Care Provider [phone] Reason for Visit * Reason Onset Date Comments Refill Request 10/28/2024 METOPROLOL Encounter Details Date Type Department Care Team (Late st Contact Info) Description 10/28/2024 Telephone [facility], [address] [place] [address] Octavia Lau MD [facility] [address] [place] [address] Refill Request (METOPROLOL) Social History Tobacco Use Types Packs/Day Years [...] and Family Not on file 01/16/2019 Attends Anabaptist Services Not on file 01/16 Active Member [...] Recorded Patient Health Questionnaire-2 Score 0 07/16/2024 [facility] of Occupat ional [facility] - Occupational Stress Questionnaire Answer Date Recorded Feeling of Stress Only a little 01/16/2019 Exercise Vital Sign Answer Date Recorde d Days of Exercise per Week 0 days 2018 Minutes of Exercise per Session Not on file 01/16/2019 Comments No Sex and Gender Information Value Date Recorded Sex Assigned at Female 07/16/2024 3:31 PM SURVEILLANCE MONITOR Legal Sex Female 8:35 PM CDT Gender [...] 4:17 PM CARLOST Mildred Cespedes RN Active * Do you have difficulty dressing or bathing? Answer Date of Assessment Author Status No 03/20/2019 4:17 PM Mildred Alvares RN Active * Because of a physical, mental, or emotional condition, do you have difficulty doing errands alone such as visiting a doctor's office or shopping? Answer Date of Assessment Author Status No 03/20/2019 4:17 PM Mildred Alvares RN Active documented as of this encounter [...] Info) Description 11/07/2024 9:30 AM CDT Appointment [facility] [address] [place] [address] Pauly Cormier PA [address] [place] [address] 11/20/2024 10:00 AM CDT Office Visit [facility] [address] [phone] Tammie De Guzman, Octavia Whitmore MD [facility] [address] [place], [place] [address] 12/02/2024 7:25 AM CDT [facility] Health[facility] [address] [place] [address] Octavia Lau MD [facility]. [facility] [address] [place], [place] [address] 02/05/2025 11:15 AM CDT Office Visit [facility] [address] [place] [phone] Dee Gibson, MANAGER FIBER-C [facility] [address] [place] [address] 07/22/2025 9:20 AM SURVEILLANCE MONITOR Office Visit [facility] Pulmonology Specialty Clinic - [address] [phone] Rajesh Izquierdo MD [address] [place] [address] [address] [place], [place] [phone] documented as of this encounter Visit Diagnoses Not on filedocumented in this encounter Additional Health Concerns Assessment Noted Time PHQ-9 Depression Total Score: 0 12/22/19 21 1:34 PM CDT documented as of this encounter Care Teams Optimization Analyst Relationship Specialty Start Date End Date Pauly Cormier PA [address] [place] [address] PCP - General PHYSICIAN MEDICAL FRONT DESK COORDINATOR 02/08/22 Barrett High MD Three [facility]. [address] [place] [address] [place] Western Philosophy Professor CARDIOVASCULAR DISEASE 01/14/19 Octavia Lau MD Three [facility]. [address] [place], [place] [address] EP Western Philosophy Professor CLINICAL CARDIAC ELECTROPHYSIOLOGY 04/03/19 documented as of this encounter
--- OUTSIDE RECORDS SUMMARY | 2024-10-29 01:04 | XMS_ITS | Encounter Summary ---
Author Organization [facility] Address [address] [place] [address] Care Team Providers Care Precision Grinder Name Role Phone Barrett High MD Unavailable Octavia Lau MD Unavailable Pauly Cormier Primary Care Provider [phone] Encounter Details Date Type Department Care Team (Late st Contact Info) Description 02/11/2022 JamLegend Message Enc [facility] THREE [address] [address] [facility], [facility] Provider Lab results Social History Tobacco Use Types Packs/Day Years [...] and Family Not on file 01/16/2019 Attends Yarsanism Services Not on file 01/16 Active Member [...] move on to questions 3-9 0 12/21/2020 [facility] of Occupat ional Health - Occupational Stress Questionnaire Answer Date Recorded Feeling of Stress Only a little 01/16/2019 Exercise Vital Sign Answer Date Recorde d Days of Exercise per Week 0 days 2018 Minutes of Exercise per Session Not on file 01/16/2019 Comments No Sex and Gender Information Value Date Recorded Sex Assigned at Female 07/16/2024 3:31 PM WOUND CARE PHYSICIAN Legal Sex Female 8:35 PM CDT Gender Identity Not on file Sexual Orientation Not on file Occupation Industry Job Start Date Job End Date Not on file Not on file Not on file Not on file COVID-19 Exposure Response Date Recorded In the last 10 days, have yo u been in contact with someone who was confirmed or suspected to have Coronavirus/COVID-19? No / Unsure 02/08/2022 8:26 AM CDT documented as of this encounter Functional [...] Info) Description 11/07/2024 9:30 AM CDT Appointment [facility] [address] [place] [address] Pauly Cormier PA [address] [place] [address] 11/20/2024 10:00 AM CDT Office Visit [facility] [address] [phone] Tammie De Guzman, Octavia Whitmore MD [facility]. [facility] [address] [place] [address] 12/02/2024 7:25 AM CDT [facility] [address] [place] [address] Octavia Lau MD [facility]. [facility] [address] [place], [place] [address] 02/05/2025 11:15 AM CDT Office Visit [facility] [address] [place] [phone] Dee Gibson, ACQUISITIONS ASSISTANT-C [facility]. [facility] [address] [place] [address] 07/22/2025 9:20 AM WOUND CARE PHYSICIAN Office Visit [facility] Medical Group Pulmonology Specialty [address] [phone] Rajesh Izquierdo MD [address] [place] [address] [address] [place], [place] [phone] documented as of this encounter Visit Diagnoses Not on filedocumented in this encounter Additional Health Concerns Assessment Noted Time PHQ-9 Depression Total Score: 0 12/22/19 21 1:34 PM CDT documented as of this encounter Care Teams Precision Grinder Relationship Specialty Start Date End Date Pauly Cormier PA [address] [place] [address] PCP - General PHYSICIAN TIN RECOVERY WORKER 02/08/22 Barrett High MD Three [facility]. [address] [place] [address] [place]ert[place] Grease Buffer CARDIOVASCULAR DISEASE 01/14/19 Octavia Lau MD Three [facility]. [address] [place] [address] EP Grease Buffer CLINICAL CARDIAC ELECTROPHYSIOLOGY 04/03/19 documented as of this encounter
--- OUTSIDE RECORDS SUMMARY | 2024-10-29 01:04 | XMS_ITS | Encounter Summary ---
Author Organization [facility] Address [address] [place] [address] Care Team Providers Care Billing Checker Name Role Phone García Flores MD Primary Care Provider [phone] Barrett High MD Unavailable [phone] Octavia Lau MD Unavailable Pauly Cormier Primary Care Provider [phone] Encounter Details Date Type Department Care Team (Late st Contact Info) Description 06/12/2019 [employer] Message Enc [employer] DEPARTMENT [address] [place] [id number] Oliverio, [facility] Provider [place] manual transmission directions Social History Tobacco Use Types Packs/Day Years [...] and Family Not on file 01/16/2019 Attends Mandaen Services Not on file 01/16 Active Member of Clubs or Organizations Not on f ile 01/16/2019 Attends Club or Organization Meetings Not on keke e 01/16/2019 Marital Status 01/16/2019 AUDIT-C Answer Date Recorded Frequency of Alcohol Consumption Never 01/16/2019 Average Number of Drinks Not on file 019 Frequency of Binge Drinking Not on file 12/31 [facility] - Occupational Stress Questionnaire Answer Date Recorded Feeling of Stress Only a little 01/16/2019 Exercise Vital Sign Answer Date Recorde d Days of Exercise per Week 0 days 2018 Minutes of Exercise per Session Not on file 01/16/2019 Comments Unknown Sex and Gender Information Value Date Recorded Sex Assigned at Female 07/16/2024 3:31 PM PROJECT HIRE Legal Sex Female 8:35 PM CDT Gender [...] Info) Description 11/07/2024 9:30 AM CDT Appointment [facility] [address] [place] [address] Pauly Cormier PA [address] [place] [address] 11/20/2024 10:00 AM CDT Office Visit [facility] [address] [phone] Tammie De Guzman PACeciliaC Octavia Lau MD [facility] [address] [place] [address] 12/02/2024 7:25 AM CDT Allied Health/Nurse [facility] [address] [place] [address] Octavia Lau MD [facility]. [facility] [address] [place] [address] 02/05/2025 11:15 AM CDT Office Visit [facility] [address] [place] [phone] Dee Gibson, QUALITY ASSURANCE SUPERVISOR-C [facility]. [facility] [address] [place] [address] 07/22/2025 9:20 AM PROJECT HIRE Office Visit [facility] [address] [phone] Rajesh Izquierdo MD [address] [place] [address] [address] [place] [address] documented as of this encounter Visit Diagnoses Not on filedocumented in this encounter Additional Health Concerns Infection Onset Date Last Indicated Resolved Time COVID-19 Rule Out 09/06/2020 09/06/2020 09/07/2020 5:31 PM PROJECT HIRE documented as of this encounter Care Teams Billing Checker Relationship Specialty Start Date End Date García Flores MD [address] [place] [id number] PCP - General INTERNAL MEDICINE 01/09/19 02/07/22 Pauly Cormier PA [address] [place] [id number] PCP - General PHYSICIAN MOTEL FRONT DESK ATTENDANT 02/08/22 Barrett High MD [facility]. [facility] [address] [place] [address] Stanley Spot Washer CARDIOVASCULAR DISEASE 01/14/19 Octavia Lau MD [facility]. [facility] [address] [place] [address] EP Spot Washer CLINICAL CARDIAC ELECTROPHYSIOLOGY 04/03/19 documented as of this encounter
[2024-10-29 09:12] VITALS: BP 141/92; PULSE 86; RESP 20; TEMP 36.4; O2SAT 99; BMI 42.2
--- NOTE | 2024-10-29 09:29 | P.PNAN_ITS ---
Anes - Initial Pre Proc Eval Procedure: Operation Date: 10/29/24 10:30 Proposed Procedures p Screening Colonoscopy - Neeraj Aldridge MD Date/Time: 10/29/24 09:29 Surgeon: Neeraj Aldridge MD Pre Op Diagnosis: Screening for malignant neoplasm of colon. Patient Data Age: 79 Gender: F Height: 1.57 m Weight: 104.7 kg Last Vital Signs Temp 97.5 F L 10/29/24 09:12 Pulse 86 10/29/24 09:12 Resp 20 10/29/24 09:12 BP 141/92 H 10/29/24 09:12 Pulse Ox 99 10/29/24 09:12 O2 Del Method Room Air 10/29/24 09:12 Allergies Allergy/AdvReac Type Severity Reaction Status Date / Time fexofenadine (From Shae-D) Allergy Severe throat Verified 10/29/24 09:10 swelling pseudoephedrine (From Allergy Severe throat Verified 10/29/24 09:10 Shae-D) swelling Home Medications ?Medication ?Instructions ?Recorded ?Confirmed ?Type sacubitril 24 mg-valsartan 26 mg 1 tablet PO ONCE 10/10/19 10/29/24 History tablet (Entresto) apixaban 5 mg tablet (Eliquis) 5 mg PO BID 10/06/20 10/29/24 History cholecalciferol (vitamin D3) 50 2,000 unit PO DAILY 05/09/22 10/29/24 History mcg (2,000 unit) tablet multivitamin 1 tablet PO DAILY 05/09/22 10/29/24 History ascorbic acid (vitamin C) 500 mg 500 mg PO DAILY 06/08/22 10/29/24 History capsule cyanocobalamin (vitamin B-12) 1,000 mcg PO DAILY 06/08/22 10/29/24 History 1,000 mcg capsule zinc citrate, zinc oxide 50 mg 50 mg PO DAILY 06/08/22 10/29/24 History tablet metoprolol succinate 100 mg 100 mg PO BID 11/08/22 10/29/24 History tablet,extended release 24 hr magnesium oxide 400 mg PO BID 12/09/22 10/29/24 History metoprolol succinate 25 mg 25 mg PO BID 03/13/24 10/29/24 History tablet,extended release 24 hr sertraline 50 mg tablet 50 mg PO DAILY #90 tabs 06/03/24 10/29/24 Rx furosemide 20 mg tablet 20 mg PO DAILY 08/14/24 10/29/24 History lutein 25 mg-zeaxanthin 5 mg 1 cap PO DAILY 08/14/24 10/29/24 History capsule methimazole 5 mg tablet See Rx Instructions .Route 08/19/24 10/29/24 Rx .COMPLEX #90 tabs omeprazole 20 mg capsule,delayed 20 mg PO DAILY #90 caps 09/06/24 10/29/24 Rx release spironolactone 25 mg tablet 12.5 mg (1/2 x 25 mg) PO DAILY #45 10/15/24 10/29/24 Rx tabs simvastatin 40 mg tablet See Rx Instructions .Route 10/22/24 10/29/24 Rx .COMPLEX #90 tabs Patient hx anesthesia problems: none Family hx anesthesia problems: none Results Review: All pre-operative results and documents have been reviewed as part of the pre- operative evaluation. 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 Assistance with paying for medication. Smoking status: Never smoker Second hand tobacco smoke exposure: No Alcohol intake: current Alcohol use details: rarely Substance use: never Substance use type: does not use Do You Feel Safe in your Home?: Yes Lack of Transportation: No Lack of Food: Never True Current Housing: I Have Housing Concerned About Future Housing: No Difficulty Paying Gas/Electric Bills: No Difficulty Paying for Meds: No Currently Unemployed: No Education: High School Diploma/GED Difficulty w/ Childcare or Family Care: No Living arrangements: with family Occupation/Education: retired Gender identity (if verbalized by the patient): Female Spiritual care concerns: No Anes - Eval Final PreProcedure Day of Procedure 10/29/24 09:29 Patient weight: morbidly obese Lungs: normal air movement Airway: Mallampati scale class II Neurological: alert and oriented Last oral intake: >/= 8 hours ASA classification: IV Emergent: no Anesthetic plan: proceed Anesthesia type and monitoring: general GIVS and standard monitoring Results Review: All pre-operative results and documents have been reviewed as part of the pre- operative evaluation. Complicated hx. Pt w hx of nonischemic cardiomyopathy, has AICD/pacemaker in place, now w nml [id number]%. Hyperlipidemia, hx of afib, BMI 42. CRMD form reviewed and appreciated. Informed Consent: The patient's anesthetic plan and its attendant risks and benefits were discussed with the patient/family/POA. Questions were solicited and answers provided to the satisfaction of the patient/family/POA.
[2024-10-29] MEDS: LACTATED RINGERS 1,000 ML 150 ML IV CONT (09:45)
--- NOTE | 2024-10-29 10:07 | PM.HPGS ---
History of Present Illness History of Present Illness Consent: Risks, benefits, and alternatives have been discussed and questions answered. Patient agrees to proceed with procedure. Chief complaint: Screening for malignant neoplasm of colon. 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 Assistance with paying for medication. Smoking status: Never smoker Second hand tobacco smoke exposure: No Alcohol intake: current Alcohol use details: rarely Substance use: never Substance use type: does not use Do You Feel Safe in your Home?: Yes Lack of Transportation: No Lack of Food: Never True Current Housing: I Have Housing Concerned About Future Housing: No Difficulty Paying Gas/Electric Bills: No Difficulty Paying for Meds: No Currently Unemployed: No Education: High School Diploma/GED Difficulty w/ Childcare or Family Care: No Living arrangements: with family Occupation/Education: retired Gender identity (if verbalized by the patient): Female Spiritual care concerns: No Meds Home Medications and Allergies Home Medications ?Medication ?Instructions ?Recorded ?Confirmed ?Type sacubitril 24 mg-valsartan 26 mg 1 tablet PO ONCE 10/10/19 10/29/24 History tablet (Entresto) apixaban 5 mg tablet (Eliquis) 5 mg PO BID 10/06/20 10/29/24 History cholecalciferol (vitamin D3) 50 2,000 unit PO DAILY 05/09/22 10/29/24 History mcg (2,000 unit) tablet multivitamin 1 tablet PO DAILY 05/09/22 10/29/24 History ascorbic acid (vitamin C) 500 mg 500 mg PO DAILY 06/08/22 10/29/24 History capsule cyanocobalamin (vitamin B-12) 1,000 mcg PO DAILY 06/08/22 10/29/24 History 1,000 mcg capsule zinc citrate, zinc oxide 50 mg 50 mg PO DAILY 06/08/22 10/29/24 History tablet metoprolol succinate 100 mg 100 mg PO BID 11/08/22 10/29/24 History tablet,extended release 24 hr magnesium oxide 400 mg PO BID 12/09/22 10/29/24 History metoprolol succinate 25 mg 25 mg PO BID 03/13/24 10/29/24 History tablet,extended release 24 hr sertraline 50 mg tablet 50 mg PO DAILY #90 tabs 06/03/24 10/29/24 Rx furosemide 20 mg tablet 20 mg PO DAILY 08/14/24 10/29/24 History lutein 25 mg-zeaxanthin 5 mg 1 cap PO DAILY 08/14/24 10/29/24 History capsule methimazole 5 mg tablet See Rx Instructions .Route 08/19/24 10/29/24 Rx .COMPLEX #90 tabs omeprazole 20 mg capsule,delayed 20 mg PO DAILY #90 caps 09/06/24 10/29/24 Rx release spironolactone 25 mg tablet 12.5 mg (1/2 x 25 mg) PO DAILY #45 10/15/24 10/29/24 Rx tabs simvastatin 40 mg tablet See Rx Instructions .Route 10/22/24 10/29/24 Rx .COMPLEX #90 tabs Allergies Allergy/AdvReac Type Severity Reaction Status Date / Time fexofenadine (From Shae-D) Allergy Severe throat Verified 10/29/24 09:10 swelling pseudoephedrine (From Allergy Severe throat Verified 10/29/24 09:10 Shae-D) swelling Vital Signs Vital Signs - 24 hr 10/29/24 09:12 Temperature 97.5 F L Pulse Rate 86 Respiratory Rate 20 Blood Pressure 141/92 H Pulse Oximetry 99 Oxygen Delivery Room Air Exam Const: General: comfortable and no acute distress HENMT: Face/Nose/Sinus: Normal nares present Eyes: General: appearance normal, both eyes and all related structures Neck: Neck: no JVD Resp: Auscultation: clear to auscultation bilaterally Cardio: Rate: regular rate Rhythm: regular rhythm GI: Inspection: non-distended GI Palp: Yes Soft to palpation Skin: General skin exam: normal color Neuro: General: gait normal Speech: normal speech Extrem: General: normal to inspection Psych: Mental Status: mental status grossly normal Assessment and Plan Assessment and plan (1) Colon cancer screening: Code(s): Z12.11 - Encounter for screening for malignant neoplasm of colon Status: Acute Assessment and Plan: colonoscopy
[2024-10-29 10:21] VITALS: BP 107/54; PULSE 70; RESP 20; O2SAT 100
[2024-10-29 10:31] VITALS: BP 127/89; PULSE 80; RESP 20; O2SAT 100
[2024-10-29 10:38] VITALS: BP 134/61; PULSE 66; RESP 20; O2SAT 100
== END 2024-10-29 11:02 | disposition home or self-care (01) ==
PROVIDERS: PCP Physician Assistant Medical; Referring Provider Family Medicine; Visit Provider Internal Medicine Gastroenterology
PROC: 0DJD8ZZ Inspection of Lower Intestinal Tract, Via Natural or Artificial Opening Endoscopic (ICD-10-PCS; CPT 45378; principal; 2024-10-29 10:30)
DX: Z12.11 Encounter for screening for malignant neoplasm of colon (principal); D12.2 Benign neoplasm of ascending colon; K63.5 Polyp of colon; K64.8 Other hemorrhoids; K57.30 Diverticulosis of large intestine without perforation or abscess without bleeding; E55.9 Vitamin D deficiency, unspecified; E78.5 Hyperlipidemia, unspecified; E05.90 Thyrotoxicosis, unspecified without thyrotoxic crisis or storm; I48.91 Unspecified atrial fibrillation; E66.01 Morbid (severe) obesity due to excess calories; Z68.41 Body mass index [BMI] 40.0-44.9, adult; Z79.01 Long term (current) use of anticoagulants; Z98.890 Other specified postprocedural states; Z95.0 Presence of cardiac pacemaker; Z86.79 Personal history of other diseases of the circulatory system; Z82.49 Family history of ischemic heart disease and other diseases of the circulatory system
CPT/HCPCS: 45385; 45380; 88305; J2003; J2704; J7120

== ENCOUNTER 2025-04-23 10:30 | Outpatient (RCR) | payer MEDICARE, SELFPAY ==
--- NOTE | 2025-02-24 10:32 | PTOPEVAL1 ---
Assessment and note entered by Eladia Cardoza, PT Evaluation Information Assessment Status Evaluation Diagnosis Repeated falls ICD-10 Condition Codes (PT) Repeated falls R29.6,Abnormalities of gait and mobility R26.9,Weakness R53.1 Subjective Information Pt reports Beveler thinks she needs therapy. saw patient's wrist brace, had fallen on it. Couldn't give a reason for her fall. States she has difficulty lifting feet, she shuffles, and has difficulty getting up and down steps. States this started after her knees were replaced and 20 years later left had a revision. After this has not been able to got up and down steps very well. Thinks her shuffling caused her fall, cause she had it happen again the other day and caught herself. Reported Pain Level Pain Score 0: Self Report Assessment PT Clinical Summary Pt presents with diagnosis of repeated falls. Evaluation shows multiple areas of weakness to LEs , decreased flexibility, leading to gait abnormalities especially decreased foot clearance L>R. Pt also shows decreased vestibular function and body awareness without visual cueing. Pt will greatly benefit from physical therapy in order to address deficits and improve function to decrease fall risk. Plan of Care Interventions Gait Training,Neuro Re-education,Patient/Caregiver Education,Therapeutic Activities,Therapeutic Exercise,Self-Care/Home Management,Other Other Interventions DME PT Services Indicated Yes Treatment Frequency and 2x weekly x 10 visits Duration These treatments will address the objective and functional deficits as defined above. The patient will be advanced safely and appropriately in order for the patient to progress towards his/her prior level of function. Additional exercises will be introduced and as well as a comprehensive home exercise program upon discharge, if needed, ?to ensure carryover of functional gains achieved in the clinic. This treatment plan has been reviewed and agreement upon by the patient.
--- NOTE | 2025-02-24 10:32 | OPREHPOC ---
Outpatient Therapy Plan of Care This is a Multidisciplinary Plan of Care that may contain components documented by all disciplines (PT, OT, and ST.) PT Problem 1 PT Problem #1 Knowledge Deficit PT Goal 1 Goal / Goal Update Pt will be independent in HEP Pt will verbalize understanding of diagnosis and prognosis Target Visit 10 PT Problem 2 PT Problem #2 Impaired Flexibility PT Goal 1 Goal / Goal Update Pt will demonstrate increased flexibility gastrocs to improve foot clearance in gait Target Visit 10 PT Goal 2 Goal / Goal Update Pt will show gastroc length WNL to improve foot clearance with gait Target Visit 20 PT Problem 3 PT Problem #3 Impaired Strength PT Goal 1 Goal / Goal Update Pt will demonstrates glute med strength RLE of 3/5 to improve stability with gait Target Visit 10 PT Goal 2 Goal / Goal Update Pt will demonstrates glute med strength RLE of 4/5 to improve stability with gait Target Visit 20 PT Problem 4 PT Problem #4 Impaired Gait PT Goal 1 Goal / Goal Update Pt will demonstrate 2 min walk test with 100% foot clearance throughout test. Target Visit 10 PT Goal 2 Goal / Goal Update Pt will demonstrate resolution of Trendelenburg RLE to improve gait and reduce fall risk Target Visit 20
--- NOTE | 2025-03-24 10:11 | PCPTNOTE ---
Pt cancelled physical therapy appointment this date in [facility] due to being sick.
--- NOTE | 2025-03-26 11:08 | PTOPPROG ---
Assessment and note entered by Eladia Cardoza, PT Evaluation Information Assessment Status Progress Diagnosis Repeated falls ICD-10 Condition Codes (PT) Repeated falls R29.6,Abnormalities of gait and mobility R26.9,Weakness R53.1 Subjective Information Pt reports feeling she can't tell any difference in her walking and balance since starting therapy. Sometimes Feels looser with her movements, but otherwise doesn't see much difference. No falls since starting therapy. Feels like maybe a tad improved with her shuffling. States is more aware of it and tries to fix it when she does this. States she has always shuffled since having her knees done. Reports stairs are still a problem. Has to hold onto railing. Reports is using railing more for balance. Reports can go down the steps easily one step at a time but has trouble going up one steps at a time. Reports hitting the toe or heel has a feeling will fall. Pt reports is doing her home exercises except when she was sick. Assessment PT Clinical Summary Pt has attended therapy consistently for repeated falls and mobility deficits. She reports she doesn 't see much improvement in her function since starting therapy. States she has not fallen since starting therapy, shows improved strength in multiple muscle groups, and reports she is doing better about not shuffling her feet. She does still show decreased LE strength overall effecting her gait pattern and likely her sense of stability. Pt will benefit from continued therapy with shift in focus to heavier strengthening of the LEs and progressing to functional activities to further improve her balance and improve her overall independence. Plan of Care Interventions Gait Training,Neuro Re-education,Patient/Caregiver Education,Therapeutic Activities,Therapeutic Exercise,Self-Care/Home Management,Other Other Interventions DME PT Services Indicated Yes Treatment Frequency and 2x weekly x 8 visits Duration These treatments will address the objective and functional deficits as defined above. The patient will be advanced safely and appropriately in order for the patient to progress towards his/her prior level of function. Additional exercises will be introduced and as well as a comprehensive home exercise program upon discharge, if needed, ?to ensure carryover of functional gains achieved in the clinic. This treatment plan has been reviewed and agreement upon by the patient.
--- NOTE | 2025-04-23 11:25 | PTOPDC ---
Assessment and note entered by Eladia Cardoza, PT Evaluation Information Assessment Status Discharge Diagnosis Repeated falls ICD-10 Condition Codes (PT) Repeated falls R29.6,Abnormalities of gait and mobility R26.9,Weakness R53.1 Subjective Information Pt states feels like she hasn't seen much change. States when in the house is fine, if on rocks or ground is more difficult. States doesn't feel like is that bad. Tries to concentrate on her shuffling to fix it. States does her exercises at home and some of the ones was not assigned, but at least tries to do them. The one leg doesn't feel like has any more strength than when she started therapy. Still does stairs the way she always has, going up the steps is the difficult problem. States may be a little better. Feels like isn't catching her toe or heel as much, tries to take her time and hold on and being more aware. Reports also feeling stretches have helped her be able to move her legs better. Reported Pain Level Pain Score 0: Self Report Assessment PT Clinical Summary Pt has attended 17 sessions of physical therapy for balance deficits, falls, and related weakness. She states she feels she has learned a lot to be able to apply to her mobility such as correction of shuffling, and how and when to be mindful of her motions. She increased her 2 min walk test distance, improved her flexibility in her LEs for increased ease of movement. Her activity specific balance confident score did improve from However she feels she has not made much overall progress in her weakness and her walking. Pt has been encouraged to f/u with PCP and candle making supervisor for more supportive ankle and foot duggan to assist in further balance improvements, educated in continued strengthening to maintain and possibly continue to gain in her mobility and balance, and to think about working smart not hard utilizing tools to assist in her safety and function. Pt appears to have met max benefit from physical therapy at this time and is thus being discharged. Plan of Care PT Services Indicated No
== END 2025-04-23 15:34 | disposition home or self-care (01) ==
LOC: ANHHIPT 10:30
PROVIDERS: PCP Physician Assistant Medical; Visit Provider Internal Medicine Endocrinology, Diabetes & Metabolism
DX: R29.6 Repeated falls (principal)
CPT/HCPCS: 97110; 97112; 97162; 97530; 97750